=== PATIENT | male | born 1970 | race Caucasian/White ===

== ENCOUNTER 2018-08-25 17:04 | Emergency (ER) | payer MEDICAID ==
[~2018-08-25] VITALS: Ht 165.1 cm; Wt 73.5 kg
[~2018-08-25 17:04] MED LIST: PRI20 PO; SIMVASTATIN40 M1 PO
[2018-08-25 17:24] VITALS: Ht 165.1 cm; Wt 73.5 kg
[2018-08-25 17:55] LABS: BASOPHIL % 0.4 % (0-2); PLATELET COUNT 337 x10^3mcL (130-400)
[2018-08-25 18:04] LABS: CHLORIDE SERUM 103 mmol/L (98-107); CREATININE SERUM 0.9 mg/dL (0.7-1.3); GFR1 > 60 mL/min; GLUCOSE SERUM 109 mg/dL (74-106); POTASSIUM SERUM 4.2 mmol/L (3.5-5.1); SODIUM SERUM 137 mmol/L (136-145)
[2018-08-25 18:08] LABS: ALKALINE PHOSPHATASE 82 U/L (46-116); ALT/SGPT 31 U/L (16-63); AST/SGOT 21 U/L (15-37); BILIRUBIN TOTAL 0.52 mg/dL (0.20-1.00); HDL CHOLESTEROL 49 mg/dL (40-60); LIPASE 107 IU/L (73-393); TOTAL PROTEIN, SERUM 8.2 g/dL (6.4-8.2); TRIGLYCERIDES 103 mg/dL (<150)
[2018-08-25 18:09] LABS: CHOLESTEROL 228 mg/dL (<200); CHOLESTEROL/HDL RATIO 4.7
[2018-08-25 18:16] LABS: T3 TOTAL 1.31 ng/mL
[2018-08-25 18:34] LABS: FREE T4 1.03 ng/dL (0.76-1.46); FREE THYROXINE INDEX 3.5 ug/dL (1.4-4.5); T4(THYROXINE) 10.2 ug/dL (4.7-13.3)
[2018-08-25 19:13] LABS: UA SPECIFIC GRAVITY 1.015 (1.005-1.035); microscopic required? YES; urine erythrocyte TRACE (NEGATIVE)
[2018-08-25 19:30] LABS: AMPHETAMINE QUAL UR NONE DETECTED (See below)
[2018-08-25 20:39] VITALS: BP 132/82
== END 2018-08-25 20:15 | disposition home or self-care (01) ==
LOC: ED 17:04
PROVIDERS: Specialist
DX: R10.13 Epigastric pain (principal); I10 Essential (primary) hypertension; F41.9 Anxiety disorder, unspecified; F29 Unspecified psychosis not due to a substance or known physiological condition
CPT/HCPCS: 83880; 84439; G0480; J2405; J3010; J3490; Q0092

== ENCOUNTER 2018-08-27 08:16 | Emergency (ER) | payer MEDICAID ==
[~2018-08-27] VITALS: Ht 162.6 cm; Wt 63.5 kg
[2018-08-27 08:30] VITALS: Ht 162.6 cm; Wt 63.5 kg
[2018-08-27 09:48] LABS: BASOPHIL % 0.1 % (0-2); PLATELET COUNT 344 x10^3mcL (130-400); RED CELL DISTRIBUTION WIDTH 13.2 % (11.5-14.5)
[2018-08-27 09:54] LABS: CALCIUM 8.4 mg/dL (8.5-10.1); CARBON DIOXIDE 23.7 mmol/L (21-32); CHLORIDE SERUM 104 mmol/L (98-107); CREATININE SERUM 0.9 mg/dL (0.7-1.3); GFR1 > 60 mL/min; GLUCOSE SERUM 107 mg/dL (74-106); POTASSIUM SERUM 4.1 mmol/L (3.5-5.1); SODIUM SERUM 137 mmol/L (136-145)
[2018-08-27 09:58] LABS: ALBUMIN 3.9 g/dL (3.4-5.0); ALKALINE PHOSPHATASE 81 U/L (46-116); ALT/SGPT 30 U/L (16-63); AST/SGOT 20 U/L (15-37); BILIRUBIN TOTAL 0.5 mg/dL (0.20-1.00); TOTAL PROTEIN, SERUM 8.2 g/dL (6.4-8.2)
[2018-08-27 11:06] VITALS: BP 120/82
== END 2018-08-27 11:06 | disposition home or self-care (01) ==
LOC: ED 08:16
PROVIDERS: Emergency Medicine
DX: S61.452A Open bite of left hand, initial encounter (principal); S61.411A Laceration without foreign body of right hand, initial encounter; I10 Essential (primary) hypertension; F41.9 Anxiety disorder, unspecified; W54.0XXA Bitten by dog, initial encounter; W18.39XA Other fall on same level, initial encounter; Y93.89 Activity, other specified; Y92.89 Other specified places as the place of occurrence of the external cause; Y99.8 Other external cause status
CPT/HCPCS: 90715; A4570; J2270; J2405; J2543; J7030

== ENCOUNTER 2018-08-28 09:44 | Emergency (ER) | payer MEDICAID ==
[~2018-08-28] VITALS: Ht 170.2 cm; Wt 71.7 kg
[2018-08-28 09:48] VITALS: Ht 170.2 cm; Wt 71.7 kg
[2018-08-28 12:39] VITALS: BP 130/77
== END 2018-08-28 12:39 | disposition home or self-care (01) ==
LOC: ED 09:44
DX: S61.412A Laceration without foreign body of left hand, initial encounter (principal); S61.452A Open bite of left hand, initial encounter; F41.9 Anxiety disorder, unspecified; I10 Essential (primary) hypertension; W54.0XXA Bitten by dog, initial encounter; Y93.89 Activity, other specified; Y92.89 Other specified places as the place of occurrence of the external cause; Y99.8 Other external cause status
CPT/HCPCS: J2001

== ENCOUNTER 2018-08-30 13:55 | Emergency (ER) | payer MEDICAID ==
[~2018-08-30] VITALS: Ht 154.9 cm; Wt 72.1 kg
[2018-08-30 14:56] VITALS: BP 135/95; Ht 154.9 cm; Wt 72.1 kg
== END 2018-08-30 16:57 | disposition home or self-care (01) ==
LOC: ED 13:55
DX: S61.452D Open bite of left hand, subsequent encounter (principal); S61.451D Open bite of right hand, subsequent encounter; I10 Essential (primary) hypertension; F41.9 Anxiety disorder, unspecified; W54.0XXD Bitten by dog, subsequent encounter

== ENCOUNTER 2018-09-04 12:04 | Emergency (ER) | payer MEDICAID ==
[~2018-09-04] VITALS: Ht 165.1 cm; Wt 65.3 kg
[2018-09-04 12:08] VITALS: Ht 165.1 cm; Wt 65.3 kg
[2018-09-04 16:52] VITALS: BP 132/94
== END 2018-09-04 16:55 | disposition home or self-care (01) ==
LOC: ED 12:04
DX: S61.402D Unspecified open wound of left hand, subsequent encounter (principal); W54.0XXD Bitten by dog, subsequent encounter